=== PATIENT | male | born 1970 | race Caucasian/White ===

== ENCOUNTER 2024-11-28 20:27 | Emergency (ER) | payer OTHER, SELFPAY ==
[2024-11-28 20:37] VITALS: BP 184/106
[2024-11-28 20:54] LABS: % Basophils 1.2 % (0-2); % Eosinophils 4.3 % (0-6); % Immature Granulocytes 0.6 % (0-0.5); % Lymphocytes 34.4 % (20.5-51.1); % Monocytes 8.3 % (1.7-9.3); % Neutrophils 51.2 % (42.2-75.2); Absolute Basophils 0.1 10^3/uL (0-0.2); Absolute Eosinophils 0.4 10^3/uL (0-0.7); Absolute Immature Granulocytes 0.1 10^3/uL (0-0.05); Absolute Lymphocytes 2.8 10^3/uL (1.2-3.4); Absolute Monocytes 0.7 10^3/uL (0.1-0.6); Absolute Neutrophils 4.2 10^3/uL (1.4-6.5); Hematocrit 44.4 % (39.0-52.0); Hemoglobin 15.6 g/dL (13.0-18.0); Mean Corp Hgb Conc. 35.1 g/dL (33.0-37.0); Mean Corpuscular Hgb 29.4 pg (27.0-31.0); Mean Corpuscular Volume 83.8 fL (80.0-94.0); Mean Platelet Volume 9.1 fL (7.4-10.4); Nucleated Red Blood Cells % 0 % (-); Platelet Count 188 10^3/uL (130-400); Red Cell Dist. Width 12.3 % (11.5-14.5); White Blood Cell Count 8.1 10^3/uL (4.8-10.8)
[2024-11-28 21:09] LABS: INR 0.96; PT 13.1 Sec (11.4-14.6)
[2024-11-28 21:10] LABS: ALT (SGPT) 35 U/L (0-50); AST (SGOT) 29 U/L (17-59); Alkaline Phosphatase 61 U/L (38-126); Blood Urea Nitrogen 22 mg/dl (9-20); Calcium 9.6 mg/dl (8.4-10.2); Carbon Dioxide 22 mmol/L (22-30); Chloride 103 mmol/L (98-107); Glucose 143 mg/dl (70-99); Potassium 4.2 mmol/L (3.5-5.1); Sodium 137 mmol/L (135-145); Total Bilirubin 0.7 mg/dl (0.2-1.3); Total Protein 7.9 g/dl (6.3-8.2); eGFR > 60.00
[2024-11-28 23:13] VITALS: BP 159/95
[2024-11-28 23:16] VITALS: BMI 33.2
--- NOTE | 2024-11-29 00:26 | ED.GENMED ---
History of Present Illness
General
Chief Complaint: Rectal Bleeding
Source: patient
Exam Limitations: none
Time Seen by Provider: 11/28/24 23:41
Nursing documentation reviewed up to this point in time: agreed with
History of Present Illness
History of Present Illness:
54-year-old male with no reported chronic medical issues presents for evaluation of rectal bleeding. Patient says that yesterday morning had some blood in his stool then had a normal bowel movement later in the afternoon. Today had to bowel
movements with blood mixed in the toilet bowl. The ER for assessment. He does report hard stools. History of hemorrhoids in the past. He says he has had some flatulence and bloating but no significant abdominal pain. Denies any vomiting.
Denies any other complaints. He says he had a colonoscopy 5 years ago and conveniently is scheduled for his next colonoscopy in 2 weeks.
Past History
Past History
ED Past Medical History: Other (kidney stones)
ED Past Surgical History: Cholecystectomy
Social History
Tobacco: Smoker
Personal:
Employment: Employed (landscape crew leader)
Review of Systems
Review of Systems
All Other Systems: ROS reviewed and negative except as documented in HPI and ROS
Constitutional: Denies fever
Respiratory: Denies trouble breathing
Cardiac: Denies chest pain or palpitations
ABD/GI: Reports bloody stools; Denies abdominal pain, nausea, vomiting or diarrhea
: Denies flank pain
Musculoskeletal: Denies neck pain or back pain
Neurological: Denies dizzy or headache
Phy Exam
Physical Exam
Physical Exam:
General: Awake, alert, oriented x3; no acute distress
Head: Normocephalic, atraumatic
Eyes: Conjunctiva normal
Throat: Airway intact, handling secretions
Neck: Trachea midline, supple without meningismus
Lungs: Breathing comfortably no distress
Heart: Regular rate
Abd: Obese but soft soft, non distended, nontender
Rectal: External hemorrhoid noted with some signs of recent bleeding/dried blood but no active bleeding; no internal masses noted, no stool in the rectal vault
Neuro: No gross deficits
Extremities: Warm and well-perfused
Scores
Heart Failure Risk
Heart Failure Risk Score: Not Applicable
Heart Score for Chest Pain Patients
STEMI patient?: Not applicable
Withdrawal Assessment of Alcohol
Withdrawal Assessment Completed?: Not applicable
Course
Orders/Labs/Results
Orders:
Orders
11/28/24 20:44
Type+Screen Urgent
Complete Blood Count/With Diff Urgent
Comprehensive Metabolic Panel Urgent
PTT Urgent
Prothrombin Time Urgent
Abnormal Lab Results
11/28/24
20:44
Abs Immat Gran (auto) 0.1 H 10^3/uL
(0-0.05)
Absolute Monos (auto) 0.7 H 10^3/uL
(0.1-0.6)
Immature Gran % 0.6 H %
(0-0.5)
BUN 22 H mg/dl
(9-20)
Glucose 143 H mg/dl
(70-99)
11/28/24 20:44
11/28/24 20:44
Vital Signs
Initial and Last Documented VS:
Initial Vital Signs
Temp Pulse Resp BP Pulse Ox
36.4 C 86 16 184/106 97
11/28/24 20:37 11/28/24 20:37 11/28/24 20:37 11/28/24 20:37 11/28/24 20:37
Last Documented Vital Signs
Temp Pulse Resp BP Pulse Ox
36.4 C 86 19 159/95 98
11/28/24 20:37 11/28/24 23:15 11/28/24 23:15 11/28/24 23:13 11/28/24 23:15
MDM/Problems Addressed
Differential Diagnosis Includes:
Hemorrhoids, diverticulosis, AVM, etc
MDM/Problems Addressed:
54-year-old male presents with rectal bleeding x 3 episodes over the past 24 hours. He does have history of hemorrhoidal bleeding and has hemorrhoid on exam that I suspect is the source of bleeding. CBC and CMP unremarkable including robust
hemoglobin of 15.6. Heart rate in the 80s, blood pressure actually running mildly high. Stable for discharge; conveniently he has scheduled colonoscopy in 2 weeks which I encouraged him to keep. We spoke about high-fiber diet. Spoke about return
precautions. All questions answered.
*Pulse Oximetry
Patient hypoxic: no
*Critical Care Note
Total Time (30-74mins, 75-104mins- exclusive of procedures): Not Applicable
Data Reviewed
Review of Other/Old Records Reveals: Labs and Records
Source: patient
ED Attending Note
-
Portions of this chart may have been created with voice recognition software.� Occasional wrong word or��sound alike� substitutions may have occurred due to the inherent limitations of voice recognition software.
Discharge Plan
Departure
Patient Disposition: Home (Routine Discharge)
Date of Disposition: 11/29/24
Time of Disposition: 00:25
Patient with high blood pressure during this ER visit?: Yes
Discharge Problem:
Rectal bleeding, External hemorrhoid
Instructions: Gastrointestinal Bleeding (DC), Hemorrhoids ED
Prescriptions:
No Action
iodine Liquid
1
Berberine ES-5 200 mg Capsule
1 PO DAILY
Referrals:
Dayton Chucrh DO [Family Provider] - Follow up in 5-7 days
Activity Restrictions/Additional Instructions:
Thank you for visiting the Emergency Department at [facility].
1. Please schedule a follow up appointment as directed. Call first thing tomorrow morning to make an appointment.
2. If indicated, please take your medications as instructed and indicated on discharge paperwork.
3. If any of your symptoms do not improve, or persist, or become more severe within 6-12 hours, please return to the emergency department for further care.
4. Please return to the emergency department if you develop a headache, neck pain/stiffness, fever greater than 100.4F, chest pain, shortness of breath, persistent nausea, vomiting, slurred speech, difficulty walking, numbness/tingling, weakness,
signs of infection or any other symptoms that are worrisome to you.
Please call [phone] if you have any questions.
Interventions
Interventions:
*Risk Screen - Suicide Last Done: 11/28/24 20:37
*General Assessment Last Done: 11/28/24 20:37
*Neglect/Abuse Screening Last Done: 11/28/24 20:37
ED- Fall Risk Assessment Last Done: 11/28/24 23:06
*ED COVID-19 Vaccine History Last Done: 11/28/24 20:37
MA-Uielpf-Tloruiaaru Assessment Last Done: 11/28/24 23:06
ED- Cardiac Assessment Last Done: 11/28/24 23:06
ED- Pulmonary Assessment Last Done: 11/28/24 23:06
Discharge Date and Time
Print Language: LAO
== END 2024-11-29 00:45 | disposition home or self-care (01) ==
LOC: EMR 20:27
PROVIDERS: EMERGENCY PHYSICIAN Emergency Medicine; FAMILY PHYSICIAN Family Medicine
DX: K64.4 Residual hemorrhoidal skin tags (principal); F17.200 Nicotine dependence, unspecified, uncomplicated; Z90.49 Acquired absence of other specified parts of digestive tract
CPT/HCPCS: 99283; 80053; 85025; 85610; 85730; 86850; 86900; 86901

== ENCOUNTER 2024-12-13 06:19 | Day surgery (SDC) | payer OTHER, SELFPAY | END 2024-12-13 11:25 | disposition home or self-care (01) | LOC: GI 06:19 | PROVIDERS: ATTENDING PHYSICIAN Specialist | DX: Z12.11 Encounter for screening for malignant neoplasm of colon (principal); D12.3 Benign neoplasm of transverse colon; K57.30 Diverticulosis of large intestine without perforation or abscess without bleeding; K64.8 Other hemorrhoids; Z86.0101 Personal history of adenomatous and serrated colon polyps | CPT/HCPCS: 45385; 88305 ==